=== PATIENT | female | born 1965 | race Caucasian/White ===

== ENCOUNTER 2021-06-07 20:01 | Emergency (ER) | payer BC, SELFPAY ==
[2021-06-07 20:07] VITALS: BP 119/69; PULSE 73; RESP 18; TEMP 36.2; O2SAT 98
[2021-06-07] MEDS: LIDOCAINE 1% (PF) 2 ML (20:54)
[2021-06-07] MEDS: BACITRACIN OINT 0.9 GM PCKT 1 APPLIC TOP (21:15)
--- NOTE | 2021-06-07 21:16 | ED_ITS ---
HPI - Skin/Abscess/Foreign Bdy <ИРИНА Luciano - Last Filed: 06/07/21 21:53> General Chief complaint: Skin/Abscess/Foreign Body Stated complaint: left hand/left pinky cut at home Time Seen by Provider: 06/07/21 20:42 Source: patient Mode of arrival: Ambulatory Limitations: no limitations History of Present Illness HPI narrative: 35-year-old female presents to the emergency department for a laceration to her left little finger while she was cutting a lemon. This happened just prior to arrival. Bleeding was controlled with a pressure dressing, small laceration approximately 1 cm to the dorsum distal and of her left little finger without any nail injury. Patient's tetanus is up-to-date, contaminated, patient reports that she did run under water before she left. Range of motion is intact, both flexion extension. Related Data Home Medications Medication Instructions Recorded Confirmed No Known Home Medications 06/07/21 06/07/21 Allergies Allergy/AdvReac Type Severity Reaction Status Date / Time No Known Drug Allergies Allergy Verified 06/07/21 20:11 Review of Systems <ИРИНА Luciano - Last Filed: 06/07/21 21:53> Review of Systems Narrative: General: denies fever, chills Head/Neck: denies headache, neck pain Ears: denies ear pain, ear discharge Cardio: denies chest pain, palpitations Respiratory: denies shortness of breath, cough GI: denies abdominal pain, vomiting, or diarrhea Skin: Left little pain finger pain with 1 cm laceration Patient History <ИРИНА Luciano - Last Filed: 06/07/21 21:53> Social History Smoking Status: Never smoker Smoking Status: Never smoker alcohol intake frequency: 0-2 drinks per day Substance Use Type: does not use Exam <ИРИНА Luciano - Last Filed: 06/07/21 21:53> Narrative Exam Narrative: Independently reviewed vital signs and nursing notes. General: Awake, alert, nontoxic, no cardiorespiratory distress Head/Neck: Atraumatic, neck full range of motion Eyes: EOMI, conjunctiva normal Nose: nares patent, no rhinorrhea Mouth/Throat: moist mucus membranes MSK: Moves all extremities, neurovascularly intact, 1 cm laceration to the dorsum of her distal left little finger distal to the DIP and without injury to the fingernail Skin: Normal capillary refill, no rash Neuro: Normal speech and cognition, normal gait Initial Vital Signs Initial Vital Signs: Vital Signs Temperature 97.1 F L 06/07/21 20:07 Pulse Rate 73 06/07/21 20:07 Respiratory Rate 18 06/07/21 20:07 Blood Pressure 119/69 06/07/21 20:07 Pulse Oximetry 98 06/07/21 20:07 Procedures <ИРИНА Luciano - Last Filed: 06/07/21 21:53> Laceration Repair Laceration 1: Site: hand Side (If applicable): left Size (cm): 1 Description: linear and clean Depth: simple, single layer Local Anesthetic: lidocaine 1% Amount of anesthesia used (mL): 1 Pre-repair: wound explored, irrigated extensively and deep structures intact Skin layer closed with: nylon Size (cm): 5-0 Number of sutures: 3 Technique: simple, interrupted Course <ИРИНА Luciano - Last Filed: 06/07/21 21:53> Orders Ordered: Discontinued Medications Bacitracin (Bacitracin Oint 0.9 Gm Pckt) 1 applic TOP NOW ONE Stop: 06/07/21 21:10 Last Admin: 06/07/21 21:15 Dose: 1 applic Documented by: MALIA Lidocaine HCl (Lidocaine 1% 20 Ml) 1 ml SUBCUT NOW ONE Stop: 06/07/21 20:46 Lidocaine/Sodium Bicarbonate (Lido 1%/Sod Bicarb 8.4% (10ml) 10 Ml Syringe) 10 ml INJ NOW ONE Stop: 06/07/21 20:43 Vital Signs Vital signs: Vital Signs - 8 hr 06/07/21 20:07 Temperature 97.1 F L Pulse Rate 73 Respiratory Rate 18 Blood Pressure 119/69 Pulse Oximetry 98 MDM - Skin/Abscess/Foreign Bdy <ИРИНА Luciano - Last Filed: 06/07/21 21:53> MDM Narrative Medical decision making narrative: 55-year-old left-handed female presents to the emergency department for laceration to the distal aspect of her left little finger. Suture repair was completed, patient received 3 sutures, bleeding was controlled, bacitracin was applied with a Band-Aid. Tetanus up-to-date. No suspected tendon injury, patient has full range of motion both flexion extension, no nail injury, b leeding was controlled. Instructed to have her sutures removed in 10 days, she will follow-up with her primary care provider as needed. Patient is appropriate and amenable to discharge home. Vital signs are stable on repeat examination is unremarkable. Patient has been informed of results. Patient has been given strict return to ER precautions for any new or worsening symptoms. Patient understands to follow up closely with outpatient providers as instructed. Patient understands plan and agrees to discharge home. All questions and concerns answered at this time. Discharge Plan Departure Patient Disposition: Home Clinical Impression: Laceration of finger of left hand Qualifiers: Encounter type: initial encounter Finger: little finger Damage to nail status: without damage Foreign body presence: with foreign body Qualified Code(s): S61.227A - Laceration with foreign body of left little finger without damage to nail, initial encounter Activity Restrictions/Additional Instructions: *You have been diagnosed with a laceration to your left hand little finger. Please have your sutures removed in 10 days, if you have any redness or streaking up your hand, please return for antibiotics but I do not think this will happen. Keep it clean, keep it covered with a Band-Aid, you can use antibiotic ointment if you do not get a rash with it. You can take home the suture removal kit and have on your family members remove if they no other doing. Thank you for trusting us with your care, I hope you have a nice evening. *What to do: *Please continue to take your regular medications as directed. [ ] New medication prescriptions sent to your pharmacy: [ ] [ ] New medication written as a paper prescription [x ] No new medications given *Please follow up with your primary care provider in 2-3 days, call for an appointment. Let them know you were seen in the Emergency Department and that we ask that you be seen in follow up. We will electronically transmit a record of today's note if your PCP is in our system *If you do not have a primary care provider please contact the [facility] Resource line at [phone]. They will ask some questions about your medical history and help get you set up with a doctor in the community. *Return to Emergency Department if you should have any new, worsening or concerning symptoms, such as [fever greater than 101F, chills, worsening pain, persistent vomiting or other bothersome symptoms] Prescriptions: No Action No Known Home Medications 0RF
== END 2021-06-07 21:17 | disposition home or self-care (01) ==
PROVIDERS: Emergency Provider Nurse Practitioner Critical Care Medicine
DX: S61.227A Laceration with foreign body of left little finger without damage to nail, initial encounter (principal); X58.XXXA Exposure to other specified factors, initial encounter; Y93.G1 Activity, food preparation and clean up
CPT/HCPCS: 99282